=== PATIENT | male | born 1950 | race Caucasian/White ===

== ENCOUNTER → 2016-12-11 | Outpatient (CLI) | payer OTHER ==
--- NOTE | 2016-12-11 13:25 | CT ---
EXAMINATION TYPE: CT abdomen pelvis wo con DATE OF EXAM: 12/11/2016 12:01 PM HISTORY: Patient has no complaints at time of study. Follow up study for abnormal US showing renal c ysts. CT DLP: 1299.1 mGycm. Automated Exposure Control for Dose Reduction was Utilized. TECHNIQUE: CT scan of the abdomen and pelvis is performed without oral or IV contrast. COMPARISON: Renal ultrasound July 17, 2016 FINDINGS: Within the limitations of a non-contrast study, the following observations are made. LUNG BASES: No significant abnormality is appreciated. LIVER/GB: No significant abnormality is appreciated. PANCREAS: No significant abnormality is seen. SPLEEN: No significant abnormality is seen. ADRENALS: No significant abnormality is seen. KIDNEYS: Corresponding to ultrasound there is 7.0 x 5.4 cm oval low dense lesion with Hounsfield unit s averaging 4 anteriorly mid pole level right kidney consistent with simple cyst. Possible thin septa on ultrasound are not definitively seen on CT, either way suspect Bosniak 2F lesion because of size. There is subcentimeter hypodense focus laterally mid pole level left kidney on axial image 32 2 smal l to further characterize but presumed benign. No renal stones or hydronephrosis is evident bilateral ly. Bladder is poorly distended otherwise unremarkable. BOWEL: There is some redundancy of the sigmoid colon. There are few diverticula in the proximal sigmo id colon and distal left colon. No acute diverticulitis is evident. Normal-appearing appendix is seen from the cecum. GENITAL ORGANS: No gross abnormality seen. LYMPH NODES: No greater than 1cm abdominal or pelvic lymph nodes are appreciated. OSSEOUS STRUCTURES: There is multilevel moderate to severe spurring in the thoracolumbar spine. There is grade 1 anterolisthesis L4 and L5. There is facet arthropathy in the lower lumbar spine. OTHER: There is mild calcified atherosclerotic change of abdominal aorta and branch vessels. There is moderate sized fat-containing right inguinal hernia. IMPRESSION: There is 7.0 cm simple appearing cyst on CT that is felt to correlate with lesion on ultr asound, Bosniak 2F lesion because of size and ultrasound characteristics. Advise annual surveillance.
== END | disposition home or self-care (01) ==
LOC: RADCTMAIN 11:31
PROVIDERS: ATTEND Nurse Practitioner Acute Care
DX: N28.1 Cyst of kidney, acquired (principal)
CPT/HCPCS: 74176

== ENCOUNTER → 2018-03-16 | Outpatient (CLI) | payer OTHER ==
--- NOTE | 2018-03-16 14:30 | CT ---
EXAMINATION TYPE: CT abdomen pelvis wo con DATE OF EXAM: 03/16/2018 COMPARISON: 12/11/2016 and ultrasound 07/17/2016 HISTORY: 68-year-old male Cyst left kidney CT DLP: 1136 mGycm. Automated exposure control for dose reduction was used. TECHNIQUE: Contiguous axial scanning of the abdomen and pelvis without IV contrast. Coronal and sagit cora reconstructions performed. FINDINGS: Heart normal size without pericardial effusion. Prominent aortic valvular calcifications. Tiny hiatal hernia. Lung bases clear without pleural effusion. Noncontrast appearance of the liver, gallbladder, adrenal glands, spleen, and pancreas show no gross abnormality. Redemonstrated 5.6 x 6.5 cm cystic mass anterior right kidney versus 5.4 x 7.0 cm on 12/11/2016. 1.3 cm hypodense lesion lateral left kidney was present previously compatible with a cyst. No dilated small bowel, free fluid, or free air. Mild atherosclerotic calcifications throughout the abdominal aorta and iliac arteries. No mesenteric or retroperitoneal lymphadenopathy. Minimal scattered stool and redundant sigmoid colon. There is proximal sigmoid diverticulosis without pericolonic inflammation. Mild circumferential bladder wall thickening may be due to underdistention. Patulous right inguinal c anal. Stable prominent left external iliac chain lymph node and 1.4 cm compatible with a chronic post inflammatory etiology. No abnormal fluid collection in the pelvis. Bones: Mild degenerative changes at the hips. Degenerative ankylosis at the SI joints. Hypertrophic f acet arthropathy mid to lower lumbar spine with grade 1 anterolisthesis L4-L5 and trace grade 1 retro listhesis at L2-L3. Bridging anterior endplate spondylosis lower thoracic spine and Baastrup's diseas e. IMPRESSION: 1. Redemonstrated dominant cystic mass right kidney currently measuring 6.5 x 5.6 cm versus 7.0 x 5. 4 cm, previously, not significantly changed from 2016. Continued annual surveillance for a total of 5 years is recommended given Bosniak 2F categorization based on size and ultrasound appearance. 2. Proximal sigmoid diverticulosis. 3. Mild cervical ventral bladder wall thickening could represent chronic bladder wall hypertrophy or cystitis. Clinically correlate.
== END | disposition home or self-care (01) ==
LOC: RADCTMAIN 10:33
PROVIDERS: ATTEND Internal Medicine
DX: K57.30 Diverticulosis of large intestine without perforation or abscess without bleeding (principal); N32.9 Bladder disorder, unspecified
CPT/HCPCS: 74176

== ENCOUNTER 2020-08-02 08:42 | Day surgery (SDC) | payer OTHER ==
[2020-08-01 09:02] VITALS: BMI 41.5
[~2020-08-02 08:42] MED LIST: LACTATED RINGERS 1,000 ML IV SCH; LIDOCAINE 1% (10MG/ML) FOR IV START INTRADERMA PRN; TETRACAINE 0.5% OPHTH (PF) DROPS 4 ML BTL OP ONE
[2020-08-02] MEDS: CYCLOPENTOLATE 1% OPHTH SOLN 2 ML BTL OP ONE ×3 (09:31→09:44)
[2020-08-02 09:33] VITALS: TEMP 98.7
[2020-08-02] MEDS: PHENYLEPHRINE 2.5% OPHTH DRP 2ML OP NR ×3 (09:34→09:47)
[2020-08-02 09:56] LABS: Glucose,Whole Blood 123 mg/dL (75-99)
[2020-08-02] MEDS ORDERED: fentaNYL (PF) 50 MCG/ML 2 ML AMP ONE (10:22)
[2020-08-02] MEDS ORDERED: MIDAZOLAM 2 MG/2 ML VIAL ONE (10:22)
[2020-08-02] MEDS ORDERED: BALANCED SALT IRRIG SOLN COMB2 15 ML IRRIG.SOLN IRRIGATION ONE (10:39)
[2020-08-02] MEDS ORDERED: LIDOCAINE 1% (PF) 10MG/ML VIAL MISCELLANE ONE (10:39)
[2020-08-02] MEDS ORDERED: HYALURONATE SODIUM INTRAOCULAR 1 EACH SYRINGE (12MG/ML) INTRAOCULA ONE (10:40)
[2020-08-02] MEDS: MOXIFLOXACIN HCL 0.5% DROPS 3 ML BTL OP ONE ×2 (10:40→10:50)
[2020-08-02] MEDS: TIMOLOL 0.5% OPHTH DROPS 5 ML BTL OP ONE ×2 (10:40→10:50)
[2020-08-02] MEDS ORDERED: EPINEPHrine (PF) 0.3 ML in BALANCED SALT IRRIG SOLN COMB2 500 ML IRRIGATION ONE (10:41)
--- NOTE | 2020-08-02 10:57 | P.OP ---
Date of Procedure: 08/02/20 Preoperative Diagnosis: NS & CS & PSC Postoperative Diagnosis: same Procedure(s) Performed: PIOL, OS Implants: MX60E 15.50 Anesthesia: MAC Surgeon: Madhu Perry Pathology: none sent Condition: stable Disposition: same day Indications for Procedure: blurry vision Operative Findings: no complications
[2020-08-02 11:14] VITALS: RESP 16
[2020-08-02 11:19] VITALS: BP 154/73; PULSE 54
--- NOTE | 2020-08-03 01:04 | OP ---
OPERATIVE REPORT DATE OF SURGERY: August 02, 2020. PROCEDURE: Phacoemulsification of cataract and intraocular lens implant of the left eye. PREOPERATIVE DIAGNOSIS: Nuclear sclerosis, cortical sclerosis, posterior subcapsular cataract, post retinal detachment repair and vitrectomy of the left eye. POSTOPERATIVE DIAGNOSIS: Nuclear sclerosis, cortical sclerosis, posterior subcapsular cataract, post retinal detachment repair and vitrectomy of the left eye. SURGEON: Dr. Madhu Perry. ANESTHESIA: Topical. ESTIMATED BLOOD LOSS: None. SPECIMEN TAKEN: None. NARRATIVE: After obtaining the appropriate consent, the patient was brought to the operating room. There he was placed on cardiac monitoring, prepped and draped in the usual sterile manner. He was approached from his left temporal side and at the 5 o'clock position an MVR blade was used to create a paracentesis port. Through this opening, 1% Xylocaine MPF 50:50 mix with balanced salt solution was injected into the anterior chamber. This was followed by stabilization of the anterior chamber with Viscoat. At the 3 o'clock position, a 2.5 mm keratome was used to create a self-sealing corneal flap incision. Through this opening, a cystotome was introduced to begin a continuous tear capsulorrhexis which was completed using the Utrata forceps. Hydrodissection and hydrodelineation of the lens was accomplished with balanced salt solution. Phacoemulsification of the lens utilizing phaco chop was accomplished in 16.47 seconds at 23% power. Additional Xylocaine MPF was instilled into the anterior chamber. This was followed by removal of the remaining cortex under irrigation and aspiration along with careful polishing of the posterior capsule in capsule vacuum mode. Additional Provisc was then used to stabilize the capsular bag and using Kaye and Pepose capsule polishers, the entire perimeter of the lens was buffed with the instruments to remove as much of the remaining cortical change adherent to the capsule bag. Additional Provisc was then used to enlarge the anterior chamber and a [employer]ch [employer] Lomb MX60E 15.5 diopter posterior chamber intraocular lens was then inserted into the capsular bag without difficulty. The remaining viscoelastic was then removed from in and around the intraocular lens as well as the anterior chamber. The eye was then brought to normal intraocular pressure through the paracentesis port with balanced salt solution and the eye was confirmed watertight. He then received 2 drops of moxifloxacin as well as 2 drops of 0.5% timolol. He was then lightly patched and shielded in the usual manner. There were no complications of the procedure. He tolerated the procedure well and was returned to outpatient recovery in good condition. DORI / DEBBY: [id number] /
== END 2020-08-02 11:45 | disposition home or self-care (01) ==
LOC: OR 08:42
PROVIDERS: ATTEND Ophthalmology
DX: H25.13 Age-related nuclear cataract, bilateral (principal); H25.013 Cortical age-related cataract, bilateral; H25.042 Posterior subcapsular polar age-related cataract, left eye; H00.023 Hordeolum internum right eye, unspecified eyelid; H00.026 Hordeolum internum left eye, unspecified eyelid; Z86.69 Personal history of other diseases of the nervous system and sense organs; H52.4 Presbyopia; H52.223 Regular astigmatism, bilateral; H52.01 Hypermetropia, right eye; I11.9 Hypertensive heart disease without heart failure; E11.9 Type 2 diabetes mellitus without complications; E66.9 Obesity, unspecified; K21.9 Gastro-esophageal reflux disease without esophagitis; H91.90 Unspecified hearing loss, unspecified ear; M19.90 Unspecified osteoarthritis, unspecified site; E78.5 Hyperlipidemia, unspecified; D64.9 Anemia, unspecified; J30.2 Other seasonal allergic rhinitis; Z88.8 Allergy status to other drugs, medicaments and biological substances; Z96.653 Presence of artificial knee joint, bilateral; Z95.4 Presence of other heart-valve replacement; Z79.82 Long term (current) use of aspirin; Z79.02 Long term (current) use of antithrombotics/antiplatelets; Z79.84 Long term (current) use of oral hypoglycemic drugs; Z79.899 Other long term (current) drug therapy; Z87.891 Personal history of nicotine dependence; Z68.41 Body mass index [BMI] 40.0-44.9, adult; Z82.49 Family history of ischemic heart disease and other diseases of the circulatory system; Z82.61 Family history of arthritis; Z83.518 Family history of other specified eye disorder; Z80.9 Family history of malignant neoplasm, unspecified
CPT/HCPCS: 66984; C1780; J2250; J0171; J3010; J2001

== ENCOUNTER 2022-04-30 08:44 | Day surgery (SDC) | payer OTHER ==
[2022-04-26 08:43] VITALS: BMI 41.5
[~2022-04-30 08:44] MED LIST changes: -TETRACAINE 0.5% OPHTH (PF) DROPS 4 ML BTL OP ONE
[2022-04-30 09:39] VITALS: RESP 16; TEMP 97.9
[2022-04-30 09:39] LABS: Glucose,Whole Blood 126 mg/dL (70-110)
[2022-04-30] MEDS ORDERED: PROPOFOL 10 MG/ML 20 ML VIAL IV ONE (09:57)
[2022-04-30] MEDS ORDERED: LIDOCAINE 2% INJ 20 MG/ML (2 ML VIAL) ONE (09:57)
--- NOTE | 2022-04-30 10:03 | P.GSHP ---
History of Present Illness H&P Date: 04/30/22 Chief Complaint: GERD, screening, history of polyps 72-year-old male here today for EGD and colonoscopy. Patient with mild upper abdominal pain and reflux at times. Concerned about possible water contamination at [place] in the past. Patient also with personal history of colon polyps. Last upper and lower endoscopy 6 years ago. No current bowel complaints. Past Medical History Past Medical History: GERD/Reflux, Hearing Disorder / Deafness, Hyperlipidemia, Hypertension, Osteoarthritis (OA), Renal Disease Additional Past Medical History / Comment(s): AORTIC VALVE -REPLACED , "PRE DIABETIC " , CHRONIC KIDNEY DISEASE ,had exposure to [place] in the [facility]. History of Any Multi-Drug Resistant Organisms: None Reported Past Surgical History: Heart Catheterization, Joint Replacement Additional Past Surgical History / Comment(s): lasik EYE SURGERY , TOTAL JESUS KNEE, TOTAL LEFT KNEE, AORTIC VALVE - TAVR, COLONOSCOPY,detached retina repair left eye,jesus cataracts Past Anesthesia/Blood Transfusion Reactions: No Reported Reaction Additional Past Anesthesia/Blood Transfusion Reaction / Comment(s): no hx blood transfusion Smoking Status: Former smoker - Past Family History Father Family Medical History: Cancer, Deep Vein Thrombosis (DVT) Medications and Allergies Home Medications Medication Instructions Recorded Confirmed Type Aspirin 81 mg PO DAILY 08/01/20 04/26/22 History Cholecalciferol [Vitamin D3 (25 50 mcg PO DAILY 04/26/22 04/30/22 History Mcg = 1000 Iu)] Famotidine 40 mg PO QAM 04/26/22 04/30/22 History Fexofenadine HCl [Ewelina Allergy] 180 mg PO DAILY PRN 04/26/22 04/30/22 History Furosemide [Lasix] 40 mg PO BID 04/26/22 04/30/22 History Losartan Potassium [Cozaar] 100 mg PO QAM 04/26/22 04/30/22 History Sodium Bicarbonate Tab 650 mg PO BID 04/26/22 04/30/22 History Allergies Allergy/AdvReac Type Severity Reaction Status Date / Time lovastatin Allergy MUSCLE Verified 04/30/22 09:19 PAIN, LEG PAIN Kcrnqor-VHU-LvE Reductase Allergy muscle Verified 04/30/22 09:19 Inhibitor pain, leg [Ipudvly-Ezh-Ggz Reductase pain Inhibitor] Surgical - Exam Vital Signs Temp Pulse Resp BP Pulse Ox 97.9 F 68 16 165/72 97 04/30/22 09:32 04/30/22 09:32 04/30/22 09:32 04/30/22 09:32 04/30/22 09:32 Physical exam: General: Well-developed, well-nourished HEENT: Normocephalic, sclerae nonicteric Abdomen: Nontender, nondistended Extremities: No edema Neuro: Alert and oriented Results - Labs Abnormal Lab Results - Last 24 Hours (Table) 04/30/22 Range/Units 09:37 POC Glucose (mg/dL) 126 H (70-110) mg/dL Assessment and Plan (1) GERD (gastroesophageal reflux disease) Narrative/Plan: Will proceed with upper and lower endoscopy. Current Visit: Yes Status: Acute Code(s): K21.9 - GASTRO-ESOPHAGEAL REFLUX DISEASE WITHOUT ESOPHAGITIS SNOMED Code(s): 556248805
--- NOTE | 2022-04-30 10:20 | P.PCN ---
Date of Procedure: 04/30/22 Procedure(s) Performed: PREOPERATIVE DIAGNOSIS: GERD, screening, history of colon polyps POSTOPERATIVE DIAGNOSIS: Mild gastritis, small hiatal hernia, diverticulosis PROCEDURE: 1. EGD with biopsy 2. Colonoscopy ANESTHESIA: MAC SURGEON: Santiago Bravo M.D. SPECIMENS: Antrum ENDOSCOPIC PROCEDURE: The patient was on the endoscopy table in the left decubitus position. The Olympus gastroscope was inserted into the oropharynx and passed under direct visualization to the region of the third portion of the duodenum. From that point the scope was slowly withdrawn inspecting all surfaces carefully. There were no neoplastic inflammatory or polypoid lesions throughout the duodenum. The pylorus was widely patent. The stomach was carefully inspected. There was mild gastritis present. A biopsy of the antrum took place to rule out H. pylori. Retroflexion revealed a small sliding hiatal hernia. The esophagus was then carefully examined. There were no neoplastic inflammatory or polypoid lesions throughout the visualized esophagus. The patient was kept on the endoscopy table in the left decubitus position. The Olympus colonoscope was inserted into the anus and passed under direct visualization to the base of the cecum. The appendiceal orifice was visualized. From that point the scope was slowly withdrawn inspecting all surfaces carefully. There were no neoplastic inflammatory or polypoid lesions throughout the cecum, ascending, transverse, descending, sigmoid and rectum. There was mild left-sided diverticulosis noted. Digital rectal examination was normal. The patient was taken to the recovery room in stable condition per anesthesia guidelines. RECOMMENDATIONS: Await biopsy results. Repeat colonoscopy in 5 years.
[2022-04-30 10:27] VITALS: PULSE 55
[2022-04-30 10:45] VITALS: BP 149/67
== END 2022-04-30 11:10 | disposition home or self-care (01) ==
LOC: ORWHC2ENDO 08:44
PROVIDERS: ATTEND Surgery
DX: Z12.11 Encounter for screening for malignant neoplasm of colon (principal); Z86.010 Personal history of colon polyps; K29.50 Unspecified chronic gastritis without bleeding; K44.9 Diaphragmatic hernia without obstruction or gangrene; K57.30 Diverticulosis of large intestine without perforation or abscess without bleeding; K21.9 Gastro-esophageal reflux disease without esophagitis; E78.5 Hyperlipidemia, unspecified; I10 Essential (primary) hypertension; H91.90 Unspecified hearing loss, unspecified ear; M19.90 Unspecified osteoarthritis, unspecified site; I12.9 Hypertensive chronic kidney disease with stage 1 through stage 4 chronic kidney disease, or unspecified chronic kidney disease; N18.9 Chronic kidney disease, unspecified; R73.03 Prediabetes; Z96.653 Presence of artificial knee joint, bilateral; Z98.42 Cataract extraction status, left eye; Z98.41 Cataract extraction status, right eye; Z98.890 Other specified postprocedural states; Z87.891 Personal history of nicotine dependence; Z80.9 Family history of malignant neoplasm, unspecified; Z82.49 Family history of ischemic heart disease and other diseases of the circulatory system; Z79.82 Long term (current) use of aspirin; Z79.899 Other long term (current) drug therapy; Z88.8 Allergy status to other drugs, medicaments and biological substances
CPT/HCPCS: 88305; 43239; J2704; J2001; G0105